=== PATIENT | female | born 1965 | race Caucasian/White ===

== ENCOUNTER 2021-01-11 19:52 | Emergency (ER) | payer BC, OTHER ==
[~2021-01-11 19:52] MED LIST: ACCUPRIL10 MG PO; ALVESCO6.1 G1 INH; ASPIRIN81 MG PO; ATIVAN 1MG TABLE1 MG PO; BISOPROLOL-HCT1 EAC1 PO; CENTRUM COMPLE1 EACH PO; CITRACAL + D M1 EACH PO; DICLOFONO2.5 GM TP; DULERA 200 MCG8.8 GM INH; FLEXERIL 10 MG10 MG PO; GABITRIL12 MG PO; IPRATROPIU0.2 MG/1 M NEB; KEPPRA 500 MG500 MG PO; KEPPRA1000 MG PO; KEPPRA250 MG PO; PROAIR HFA8.5 GM INH; RELPAX40 MG PO; SINGULAIR10 MG PO; SUMATRIPTA6 MG/0.53 SQ; SYNTHROID100 MCG PO; TYLENOL W/CODEIN1 E1 PO; VITAMIN D2400 UNIT PO; XOPENEX HFA15 GM INH; XOPENEX0.63 MG/3 NEB; ZEGERID 20 MG1 EACH PO
[2021-01-11 20:58] LABS: HEMOGLOBIN 13.8 gm/dl (12.3-15.3); RED BLOOD COUNT 4.39 M/UL (4.00-5.10); WHITE BLOOD COUNT 13.7 K/UL (4.5-11.0)
[2021-01-11 21:20] LABS: BUN/CREATININE RATIO 23 (0-10)
[2021-04-30] MEDS ORDERED: KEPPRA500 MG PO (11:24)
[2021-04-30] MEDS ORDERED: KEPPRA1000 MG PO (11:25)
[2021-04-30] MEDS ORDERED: NORVASC2.5 MG PO (11:25)
[2021-04-30] MEDS ORDERED: ZEBETA 5 MG TAB5 MG PO (11:26)
[2021-04-30] MEDS ORDERED: CYCLOBENZAPRINE10 MG PO (11:29)
[2021-04-30] MEDS ORDERED: BIOTIN (11:32)
[2021-04-30] MEDS ORDERED: ALBUTEROL SULFATE (11:32)
[2021-04-30] MEDS ORDERED: MAGNESIUM (11:33)
== END 2021-01-12 00:20 | disposition home or self-care (01) ==
LOC: ER1 19:52
PROVIDERS: Emergency Medicine
DX: R20.2 Paresthesia of skin (principal); I10 Essential (primary) hypertension; Z20.822 Contact with and (suspected) exposure to COVID-19; Z88.1 Allergy status to other antibiotic agents; Z88.8 Allergy status to other drugs, medicaments and biological substances; E03.9 Hypothyroidism, unspecified; J45.909 Unspecified asthma, uncomplicated; Z90.710 Acquired absence of both cervix and uterus
CPT/HCPCS: 70450; 70496; 70498; 71045; 80053; 81001; 82550; 82553; 82962; 83690; 83735; 83874; 84439; 84443; 84484; 85025; 85610; 85730; 96374; 99284; J2405; Q9967; U0002

== ENCOUNTER → 2021-04-30 | Outpatient (CLI) | payer MEDICARE ==
[~2021-04-30] MED LIST changes: +ALBUTEROL SULFATE; +BIOTIN; +CYCLOBENZAPRINE10 MG PO; +KEPPRA500 MG PO; +MAGNESIUM; +NORVASC2.5 MG PO; +ZEBETA 5 MG TAB5 MG PO
[2021-04-30 11:43] LABS: BUN/CREATININE RATIO 24 (0-10)
== END ==
LOC: OPSV2 10:00
PROVIDERS: Surgery
DX: Z01.818 Encounter for other preprocedural examination (principal); D17.1 Benign lipomatous neoplasm of skin and subcutaneous tissue of trunk
CPT/HCPCS: 36415; 80048; 93005

== ENCOUNTER → 2021-05-02 | Day surgery (SDC) | payer MEDICARE | END | disposition home or self-care (01) | LOC: OR 06:15 | DX: D17.1 Benign lipomatous neoplasm of skin and subcutaneous tissue of trunk (principal); J45.909 Unspecified asthma, uncomplicated; F41.9 Anxiety disorder, unspecified; I10 Essential (primary) hypertension; E11.9 Type 2 diabetes mellitus without complications; K21.9 Gastro-esophageal reflux disease without esophagitis; M81.8 Other osteoporosis without current pathological fracture; E03.9 Hypothyroidism, unspecified; G40.909 Epilepsy, unspecified, not intractable, without status epilepticus; T38.0X5A Adverse effect of glucocorticoids and synthetic analogues, initial encounter; M32.9 Systemic lupus erythematosus, unspecified; Z88.1 Allergy status to other antibiotic agents; Z88.6 Allergy status to analgesic agent; Z88.2 Allergy status to sulfonamides; Z88.8 Allergy status to other drugs, medicaments and biological substances; Z90.49 Acquired absence of other specified parts of digestive tract | CPT/HCPCS: J2001; J2250; J2405; J2543; J2704; J7120 ==

== ENCOUNTER → 2021-05-21 | Outpatient (CLI) | payer BC | LOC: MAMO 04-23 11:00 | DX: Z12.31 Encounter for screening mammogram for malignant neoplasm of breast (principal) | CPT/HCPCS: 77063; 77067 ==

== ENCOUNTER → 2021-11-14 | Outpatient (CLI) | payer BC ==
[~2021-11-14] VITALS: Ht 160 cm; Wt 70.8 kg
== END ==
LOC: EROP 12:53
DX: U07.1 COVID-19 (principal); Z23 Encounter for immunization
CPT/HCPCS: M0247; Q0247

== ENCOUNTER → 2021-12-10 | Outpatient (CLI) | payer MEDICARE | LOC: OPSV 13:44 | DX: M81.0 Age-related osteoporosis without current pathological fracture (principal) | CPT/HCPCS: 96372 ==

== ENCOUNTER 2022-01-02 19:15 | Emergency (ER) | payer MEDICARE ==
[2022-01-02 19:55] LABS: HEMOGLOBIN 12.6 gm/dl (12.3-15.3); RED BLOOD COUNT 4.21 M/UL (4.00-5.10)
[2022-01-02 20:13] LABS: BUN/CREATININE RATIO 21 (0-10)
[2022-01-02] MEDS ORDERED: MEDROL DOSEPAK 24 MG PO (21:54)
[2022-01-02] MEDS ORDERED: BENZONATATE100 MG PO (21:54)
[2022-01-02] MEDS ORDERED: TAMIFLU75 MG PO (21:54)
== END 2022-01-02 21:58 | disposition home or self-care (01) ==
LOC: ER1 19:15
PROVIDERS: Emergency Medicine
DX: J10.1 Influenza due to other identified influenza virus with other respiratory manifestations (principal); J45.909 Unspecified asthma, uncomplicated; Z20.822 Contact with and (suspected) exposure to COVID-19
CPT/HCPCS: 0240U; 71045; 80053; 83605; 83735; 83880; 85025; 87040; 93005; 94664; 94760; 96374; 99285; J2920

== ENCOUNTER 2022-06-02 17:52 | Emergency (ER) | payer MEDICARE ==
[~2022-06-02 17:52] MED LIST changes: +BENZONATATE100 MG PO; +MEDROL DOSEPAK 24 MG PO; +TAMIFLU75 MG PO
[2022-06-02 20:11] LABS: RED BLOOD COUNT 4.34 M/UL (4.00-5.10); WHITE BLOOD COUNT 10.6 K/UL (4.5-11.0)
[2022-06-02 20:33] LABS: BUN/CREATININE RATIO 24 (0-10)
== END 2022-06-03 01:35 | disposition home or self-care (01) ==
LOC: ER1 17:52
PROVIDERS: Physician Assistant
DX: R20.2 Paresthesia of skin (principal); R51.9 Headache, unspecified; H53.9 Unspecified visual disturbance; I10 Essential (primary) hypertension; J45.909 Unspecified asthma, uncomplicated; Z90.49 Acquired absence of other specified parts of digestive tract; Z90.710 Acquired absence of both cervix and uterus
CPT/HCPCS: 70450; 80053; 82550; 82553; 84484; 85025; 93005; 99284

== ENCOUNTER → 2022-06-18 | Outpatient (CLI) | payer MEDICARE | LOC: KOH-I 08:10 | DX: R41.0 Disorientation, unspecified (principal); R51.9 Headache, unspecified; G40.909 Epilepsy, unspecified, not intractable, without status epilepticus; I10 Essential (primary) hypertension; R47.89 Other speech disturbances | CPT/HCPCS: 70544; 70551 ==